=== PATIENT | male | born 1985 | race Caucasian/White ===

== ENCOUNTER 2017-11-09 15:37 | Emergency (ER) | payer MEDICAID, OTHER ==
[2017-11-09] MEDS: IBUPROFEN 600 MG TAB PO (16:38)
[2017-11-09] MEDS: FLUORESCEIN STRIP BOTH EYES (16:38)
[2017-11-09] MEDS: TETRACAINE 0.5% 4 ML OPH BOTH EYES (16:39)
[2017-11-09] MEDS: OPHTHALMIC IRRIG SOLUTION 120 ML RIGHT EYE (16:48)
== END 2017-11-09 17:16 | disposition home or self-care (01) ==
LOC: FTE 15:37
DX: H57.11 Ocular pain, right eye (principal)
CPT/HCPCS: 99284; Z7502